=== PATIENT | male | born 1985 | race Caucasian/White ===

== ENCOUNTER 2022-05-24 02:20 | Emergency (ER) | payer MEDICAID ==
[~2022-05-24] VITALS: Ht 172.7 cm; Wt 65.8 kg
[2022-05-24 03:29] VITALS: BP 112/64
--- NOTE | 2022-05-24 03:29 | NUR ---
BIBSELF FROM HOME C/O LEFT 4TH PAIN, SWELLING, DISCOLORATION S/P STUBBED TOE ON CHAIR YESTERDAY. PT A/OX4. TOLERATING R/A WELL WITH NO RESP DISTRESS. SAFETY MEASURES TO PLACED.
--- NOTE | 2022-05-24 04:13 | NUR ---
air moving technician at pt's bedside
--- NOTE | 2022-05-24 04:48 | NUR ---
Patient discharged to home in stable condition. Written and verbal after care instructions given. Patient verbalizes understanding of instruction.
== END 2022-05-24 05:58 | disposition home or self-care (01) ==
LOC: ER 02:22
DX: S90.122A Contusion of left lesser toe(s) without damage to nail, initial encounter (principal); Z60.2 Problems related to living alone; X58.XXXA Exposure to other specified factors, initial encounter; Y93.89 Activity, other specified; Y92.89 Other specified places as the place of occurrence of the external cause; Y99.8 Other external cause status
CPT/HCPCS: 73660-TC